=== PATIENT | female | born 2000 | race Hispanic/Latino ===

== ENCOUNTER 2024-03-14 06:00 | Inpatient (IN) | payer MEDICAID, OTHER, SELFPAY ==
[2024-03-15] MEDS ORDERED: hydrALAZINE 20 MG/ML VIAL SLOW IVP PRN ×2 (08:47→16:13)
[2024-03-15] MEDS ORDERED: Lactated Ringer's 1,000 ML IV SCH (08:47)
[2024-03-15] MEDS ORDERED: Diphenoxylate HCl/Atropine Tablet PO PRN (08:47)
[2024-03-15] MEDS ORDERED: fentaNYL 50 mcg/mL 1 mL Vial SLOW IVP PRN (08:47)
[2024-03-15] MEDS ORDERED: Promethazine HCl 25 MG/ML VIAL IM PRN ×2 (08:47→16:13)
[2024-03-15] MEDS ORDERED: HYDROcodone/Acetaminophen 5/325 mg Tablet PO PRN ×2 (08:47→16:13)
[2024-03-15] MEDS ORDERED: Methylergonovine 0.2 MG/ML VIAL IM PRN (08:47)
[2024-03-15] MEDS ORDERED: Tranexamic Acid 1,000 MG/10 ML VIAL IVP PRN (08:47)
[2024-03-15] MEDS ORDERED: Misoprostol 200 MCG TAB PR PRN (08:47)
[2024-03-15] MEDS ORDERED: Carboprost 250 MCG/ML AMP IM PRN (08:47)
[2024-03-15] MEDS ORDERED: Acetaminophen 500 MG TAB PO PRN (08:47)
[2024-03-15] MEDS ORDERED: Ondansetron PF 4 MG/2 ML Vial IVP PRN ×2 (08:47→16:13)
[2024-03-15] MEDS ORDERED: Oxytocin 30 units/NS 500 ML 500 ML IV SCH ×3 (08:47)
[2024-03-15 09:33] VITALS: BMI 29.8
[2024-03-15 09:47] LABS: Hematocrit 34.2 % (34.9-44.5); Hemoglobin 11.6 g/dL (12.0-15.5); Mean Corpuscular HGB CONC 33.9 g/dL (32.0-36.0); Mean Corpuscular Hemoglobin 30.4 pg (27.0-33.0); Mean Corpuscular Volume 89.8 fL (81.6-98.3); Mean Platelet Volume 10.8 fL (7.4-10.4); Platelet Count 219 10x3/uL (150-450); RBC Distribution Width 12.6 % (11.5-14.5); Red Blood Cell (RBC) Count 3.81 10x6/uL (3.90-5.03); White Blood Cell (WBC) Count 10.8 10x3/uL (3.5-10.5)
[2024-03-15 10:18] LABS: HBsAg Index 0.21 S/CO (0-0.99); Hep B Surf Ag - L&D Non-Reactive S/CO (NonReactive)
[2024-03-15 10:20] LABS: Syphilis Antibody Nonreactive (Nonreactive); Syphilis Antibody Index 0.06 S/CO (<1.00 Non-Reactive)
[2024-03-15] MEDS: Lidocaine 1% (PF) 30 ML VIAL SC PRN (14:16)
[2024-03-15] MEDS: Ibuprofen 800 MG TAB PO PRN (14:50)
[2024-03-15] MEDS ORDERED: Milk Of Magnesia 30 ML UDCUP PO PRN (16:13)
[2024-03-15] MEDS ORDERED: Benzocaine-Menthol 82.5 ML CAN TOP PRN (16:13)
[2024-03-15] MEDS ORDERED: Bisacodyl 10 MG SUPP PR PRN (16:13)
[2024-03-15] MEDS ORDERED: diphenhydrAMINE 25 MG CAP PO PRN (16:13)
[2024-03-15] MEDS ORDERED: Lanolin Ointment 7 GM TUBE TOP PRN (16:13)
[2024-03-15] MEDS ORDERED: Preparation H Ointment 28 GM TUBE PR PRN (16:13)
[2024-03-15] MEDS: Ferrous Sulfate 325 MG TAB PO SCH (16:26)
[2024-03-15] MEDS: Ibuprofen 800 MG TAB PO SCH (21:25)
[2024-03-15] MEDS: Docusate 100 MG CAP PO SCH (21:25)
[2024-03-16] MEDS: Boostrix 0.5 ML (Tdap) VIAL (>/=7 yrs of age) IM ONE (08:13)
[2024-03-16] MEDS: Prenatal Vitamin 1 TAB PO SCH (08:31)
[2024-03-16 16:58] VITALS: BP 110/58; TEMP 97.7
== END 2024-03-16 18:05 | disposition home or self-care (01) | DRG 807 ==
LOC: CSHLD 03-15 08:31 → CSHPP 03-15 16:30
PROVIDERS: ADMIT Family Medicine; ATTEND Family Medicine
PROC: 10E0XZZ Delivery of Products of Conception, External Approach (ICD-10-PCS; principal; 2024-03-15)
PROC: 0KQM0ZZ Repair Perineum Muscle, Open Approach (ICD-10-PCS; 2024-03-15)
PROC: 10907ZC Drainage of Amniotic Fluid, Therapeutic from Products of Conception, Via Natural or Artificial Opening (ICD-10-PCS; 2024-03-15)
DX: O70.1 Second degree perineal laceration during delivery (principal); Z37.0 Single live birth; Z3A.40 40 weeks gestation of pregnancy
CPT/HCPCS: 36415; 85027; 86780; 86850; 86900; 86901; 87340